=== PATIENT | male | born 1980 | race American Indian/Alaskan Native ===

== ENCOUNTER 2018-03-01 02:40 | Emergency (ER) | payer SELFPAY ==
[2018-03-01 03:40] LABS: Bilirubin,Urine NEG (Negative); Blood,Urine NEG (Negative); Color,Urine Yellow (Yellow); Mucus,Urine FEW /HPF; Protein,Urine <15 mg/dL mg/dL (Negative); RBC,Urine < 1.0 /HPF (0.0-6.0); WBC,Urine < 1.0 /HPF (0.0-6.0)
--- NOTE | 2018-03-01 03:45 | XRay Report ---
FINAL REPORT EXAM: XR SPINE LUMBOSACRAL 2-3V HISTORY: back pain TECHNIQUE: Three views lumbar spine were obtained. FINDINGS: There is mild narrowing of the L4-L5 and L5-S1 discs. The upper lumbar discs are normal height. The alignment appears normal. There is no evidence of fracture. The SI joints appear normal. The soft tissues are well maintained. IMPRESSION: Mild disc degeneration at the L4-5 and L5-S1 levels.
--- NOTE | 2018-03-01 09:51 | Emergency Department Report ---
ED Back Pain/Injury HPI - General Chief Complaint: Back Pain/Injury Stated Complaint: LOWER BACK PAIN Time Seen by Provider: 03/01/18 09:04 Source: patient, family Limitations: No Limitations - History of Present Illness Initial Comments: This is a 37-year-old male here report that his lower back pain after picking up something at work today. He reports that pain is there is mid pack it at a 10 and achy feeling. He said he is having back problem from previously. Patient was here previously for similar problems. He is also complaining that his scrotal and groin area has some erythema and looks like he has a rash. Denies any pain or penile discharge. Denies any urinary burning, frequency or urgency. Denies any abdominal pain, nausea vomiting or fever or chills. Denies any numbness or treatments or extremities or any loss of bowel or bladder function. MD Complaint: back pain, other (rash) Onset/Timin -: days(s), year(s) Similar Symptoms Previously: Yes Place: work Radiation: none Severity: severe Severity scale (0 -10): 8 Quality: aching Consistency: constant Improves With: none Worsens With: movement, walking Context: while lifting Associated Symptoms: rash (to genital area). denies: confusion, weakness, chest pain, numbness, difficulty walking, cough, diaphoresis, incontinence, fever/chills, constipation, headaches, abdominal pain, loss of appetite, nausea/ vomiting, seizure, shortness of breath, syncope Treatments Prior to Arrival: other medications ([id number] pain medication without any relief) - Related Data Previous Rx's Medication Instructions Recorded Last Taken Type Ibuprofen [Motrin] 800 mg PO Q8H PRN #30 tablet 11/25/14 Unknown Rx Prednisone [Prednisone 10 mg 10 mg PO .TAPER #1 tab.ds.pk 11/25/14 Unknown Rx (6-Day Pack, 21 Tabs)] HYDROcodone/APAP 5-325 [Steele 1 each PO Q6HR PRN #14 tablet 12/16/14 Unknown Rx 5/325] Meloxicam 15 mg PO QDAY #30 tablet 12/16/14 Unknown Rx Cephalexin [Keflex] 500 mg PO Q8H 7 Days #21 capsule 03/01/18 Unknown Rx Ibuprofen [Motrin] 800 mg PO Q8HR PRN #15 tablet 03/01/18 Unknown Rx Ketoconazole 2% [Nizoral] 15 gm TP Q12H 7 Days #1 tube 03/01/18 Unknown Rx traMADol [Ultram 50 MG tab] 50 mg PO Q6HR PRN #14 tablet 03/01/18 Unknown Rx Allergies Allergy/AdvReac Type Severity Reaction Status Date / Time No Known Allergies Allergy Verified 11/25/14 21:30 ED Review of Systems ROS: Stated complaint: LOWER BACK PAIN Other details as noted in HPI Constitutional: denies: chills, fever Eyes: denies: eye pain, vision change ENT: denies: ear pain, throat pain, congestion Respiratory: denies: cough, shortness of breath, SOB with exertion, SOB at rest , stridor, wheezing Cardiovascular: denies: chest pain, palpitations, dyspnea on exertion, edema, syncope Gastrointestinal: denies: abdominal pain, nausea, vomiting, diarrhea, constipation, hematemesis Genitourinary: other (report rash to groin area). denies: urgency, dysuria, frequency, hematuria, discharge, testicular pain, testicular mass Musculoskeletal: denies: back pain, joint swelling, arthralgia Skin: rash, pruritus. denies: lesions Neurological: denies: headache, weakness, numbness, paresthesias, confusion, abnormal gait, vertigo ED Past Medical Hx - Past Medical History back Surgical history: no surgical history Psychiatric history: no pertinent history Family history: hypertension - Social History Smoking Status: Never Smoker Alcohol use: rarely Drug use: none ED Back Pain Physical Exam - Exam General: Vital signs noted. No distress. Alert and acting appropriately. This is a 37-year-old male well-nourished well-developed in no acute distress. : Noted erythema area to bilateral groin, no penile abnormality, no scrotal abnormality. No testicular mass. No penile discharge Lungs: Clear to auscultate bilaterally, no rhonchi wheezes or rales. Abdomen: Soft, nontender to palpation in all quadrants, no CVA tenderness. CV: S1, S2. Regular rate rhythm negative murmur Back/Abdomen: No Abdominal Tenderness, No Perithoracic Tenderness, No Perilumbar Tenderness, No Sacroiliac Tenderness, No Flank Tenderness, No Straight Leg Raise Pain Neuro: Yes Normal Sensation, Yes Normal DTR's, Yes Normal Gait, No Motor Weakness ED Course Vital Signs 03/01/18 03:03 Temperature 98.6 F Pulse Rate 94 H Respiratory 17 Rate Blood Pressure 143/92 O2 Sat by Pulse 99 Oximetry - Reevaluation(s) Reevaluation #1: 03/01/18 10:32 Patient given Motrin 800 mg when necessary emergency room and Decadron 10 mg IM for back pain. Ed Back Pain Tests - Tests Tests: Normal UA (normal findings), Normal X Rays (lumbar degenerative disc disease otherwise no acute fracture or subluxation) ED Medical Decision Making - Lab Data Lab Results 03/01/18 Range/Units Unknown Urine Color Yellow (Yellow) Urine Turbidity Clear (Clear) Urine pH 6.0 (5.0-7.0) Ur Specific [place] 1.021 (1.003-1.030) Urine Protein <15 mg/dl (Negative) mg/dL Urine Glucose (UA) Neg (Negative) mg/dL Urine Ketones Neg (Negative) mg/dL Urine Blood Neg (Negative) Urine Nitrite Neg (Negative) Urine Bilirubin Neg (Negative) Urine Urobilinogen 2.0 (<2.0) mg/dL Ur Leukocyte Esterase Neg (Negative) Urine WBC (Auto) < 1.0 (0.0-6.0) /HPF Urine RBC (Auto) < 1.0 (0.0-6.0) /HPF Urine Mucus Few /HPF - Radiology Data Radiology results: report reviewed X-ray of lumbar spine dictated by radiologist report reviewed by myself. Please see detailed below. Patient: GOKUL IBRAHIM MR#: [id number] : 1980 Acct:[id number] Age/Sex: 37 / M ADM Date: 03/01/18 Loc: ED Attending Dr: Ordering Physician: LUKE MONTERROSO MD Date of Service: 03/01/18 Procedure(s): XR spine lumbosacral 2-3V Accession Number(s): [id number] cc: LUKE MONTERROSO MD Fluoro Time In Minutes: FINAL REPORT EXAM: XR SPINE LUMBOSACRAL 2-3V HISTORY: back pain TECHNIQUE: Three views lumbar spine were obtained. FINDINGS: There is mild narrowing of the L4-L5 and L5-S1 discs. The upper lumbar discs are normal height. The alignment appears normal. There is no evidence of fracture. The SI joints appear normal. The soft tissues are well maintained. IMPRESSION: Mild disc degeneration at the L4-5 and L5-S1 levels. Transcribed By: RB Dictated By: FRANK FERRELL MD Electronically Authenticated By: FRANK FERRELL MD Signed Date/Time: 03/01/18343 DD/ 3 TD/TT: 03/01/18343 - Medical Decision Making This is a 37-year-old male here report that he is having rash to his groin area without any penile rash or lesion or penile discharge. He is not concerned for STDs. He is also report that he is having flareup of his chronic back pain after lifting something at work a day ago. Patient was seen and examined by myself and is examination is normal to include his back abdomen and neurological system. He does have erythema fungal type rash to bilateral groin area without any abnormalities in penile or scrotal exam. X-ray of lower back shows degenerative disc disease without any acute fracture or subluxation and urinalysis negative for any infection. I discuss x- ray results and urinalysis results, diagnosis and treatment plan the patient before some. I told him he will need to go to orthopedic to follow-up with his chronic back pain and he does not have a primary care physician so told him to follow-up with [facility] for primary care visits. Patient voiced understanding. He was treated with Decadron 10 mg IM and Motrin in addition milligrams by mouth and he was significant pain. Vital signs stable afebrile and pain has subsided. Discharged with prescription for Motrin and Ultram and ketoconazole cream for fungal rash to groin. - Differential Diagnosis fracture versus subluxation, DDD,MSK pain, lumbar strain Critical care attestation.: If time is entered above; I have spent that time in minutes in the direct care of this critically ill patient, excluding procedure time. ED Disposition Clinical Impression: Cellulitis of groin, Tinea cruris, Acute exacerbation of chronic low back pain Disposition: - TO HOME OR SELFCARE Is pt being admited?: No Does the pt Need Aspirin: No Condition: Stable Instructions: Tinea Corporis (ED), Cellulitis (ED), Back Pain (ED) Additional Instructions: Please follow up with orthopedic doctor Follow-up with outside [facility] for primary care. Take medication as instructed Keep affected area clean and dry Use antifungal cream to groin area You have a fungal infection in your groin with superimposed bacterial infection so please take antibiotic as prescribed for bacterial infection Take Motrin for mild pain and Ultram for moderate to severe pain but please not drive or operate heavy machinery while taking Ultram as this medication causes drowsiness Prescriptions: Cephalexin [Keflex] 500 mg PO Q8H 7 Days #21 capsule Ibuprofen [Motrin] 800 mg PO Q8HR PRN #15 tablet PRN Reason: mild pain Ketoconazole 2% [Nizoral] 15 gm TP Q12H 7 Days #1 tube traMADol [Ultram 50 MG tab] 50 mg PO Q6HR PRN #14 tablet PRN Reason: Pain Referrals: PRIMARY CARE, [Primary Care Provider] - 3-5 Days [facility] [Outside] - 3-5 Days FRANK MO MD [Staff Physician] - 3-5 Days ARINA AVILES MD [Staff Physician] - 3-5 Days Forms: Work/School Release Form(ED)
[2018-03-01] MEDS ORDERED: MOTRIN PO ONE (10:01)
[2018-03-01] MEDS ORDERED: DECADRON IM ONE (10:01)
[2018-03-01 11:00] VITALS: BP 138/88
== END 2018-03-01 10:58 | disposition home or self-care (01) ==
LOC: ED 02:40
DX: M54.5 Low back pain (principal); G89.29 Other chronic pain; L03.314 Cellulitis of groin; B35.6 Tinea cruris
CPT/HCPCS: 72100; 81001; 96372; 99284; J1100